=== PATIENT | male | born 1965 | race African-American/Black ===

== ENCOUNTER 2019-04-18 17:14 | Inpatient (IN) ==
[2019-04-18 18:31] LABS: Basophils % 0.5 % (0.0-0.8); Eosinophils # 0.2 10*3/uL (0.0-0.87); Eosinophils % 2.5 % (0.00-10.9); Hemoglobin 13.4 GM/DL (14.0-18.0); Immature Granulocytes % 0.3 %; Immature Granulocytes Absolute 0.02 #; Lymphocytes # 2.7 10*3/uL (1.4-4.0); Lymphocytes % 41.4 % (21.2-54.2); Mean Corpuscular HGB Conc 32.7 GM/DL (32-36); Mean Corpuscular Volume 98.3 FL (87-102); Mean Platelet Volume 10.1 FL (9.6-12.0); Monocytes % 8.8 % (1.7-12.7); Neutrophils % 46.5 % (38.7-73.9); Platelet Count 206 T/CUMM (130-400); Red Blood Count 4.17 MC/CUMM (3.8-5.5); Red Cell Distribution Width 12.1 % (9.3-17.3); White Blood Count 6.4 T/CUMM (4-12)
[2019-04-18 18:42] LABS: PT Patient Result 10.6 SECS (9.6-12.2); Partial Thromboplastin Time 26.8 SECS (20.8-36.0)
[2019-04-18 18:49] LABS: Albumin 3.6 G/DL (3.4-5.0); Bilirubin,Total 0.6 MG/DL (0.2-1.0); Calcium 8.5 MG/DL (8.5-10.1); Osmolality,Calculated 277.1 MOS/KG (273-304); Total Protein 7.5 G/DL (6.4-8.3)
[2019-04-18 18:52] LABS: Troponin I < 0.015 NG/ML (0.00-0.045)
[2019-04-18] MEDS ORDERED: hydrALAZINE 20 MG/1 ML VIAL ONE (19:30)
[2019-04-18] MEDS ORDERED: hydrALAZINE 20 MG/1 ML VIAL IM STA (19:36)
[2019-04-18] MEDS ORDERED: hydrALAZINE 20 MG/1 ML VIAL IV STA (19:37)
[2019-04-18] MEDS ORDERED: ONDANSETRON 4 MG/2 ML VIAL IV PRN (20:34)
[2019-04-18] MEDS ORDERED: diphenhydrAMINE CAP 25 MG CAPSULE PO PRN (20:34)
[2019-04-18] MEDS ORDERED: hydrALAZINE 20 MG/1 ML VIAL IV PRN (20:34)
[2019-04-18] MEDS ORDERED: MORPHINE 4 MG/1 ML VIAL IV PRN (20:34)
[2019-04-18] MEDS ORDERED: guaiFENesin/DM ER 600-30 MG TABLET PO PRN (20:34)
[2019-04-18] MEDS ORDERED: ACETAMINOPHEN 325 MG TABLET PO PRN (20:34)
[2019-04-18] MEDS ORDERED: NICOTINE 21 MG/24 HR PATCH TRANSDERM PRN (20:34)
[2019-04-18] MEDS ORDERED: BISACODYL 5 MG TABLET PO PRN (20:34)
[2019-04-18] MEDS ORDERED: GLUCAGON 1 MG VIAL IM PRN (20:42)
[2019-04-18] MEDS ORDERED: DEXTROSE 10% 250 ML BAG IV PRN (21:04)
[2019-04-18] MEDS ORDERED: ATORVASTATIN 80 MG TABLET PO SCH (22:00)
[2019-04-18] MEDS ORDERED: ATORVASTATIN 40 MG TABLET PO SCH (22:02)
[2019-04-18 22:14] LABS: Risk Ratio 3.81; Thyroid Stimulating Hormone 0.998 uIU/ml (0.358-3.74); VLDL CHOLESTEROL 37.4 MG/DL
[2019-04-18 22:38] LABS: Troponin I < 0.015 NG/ML (0.00-0.045)
[2019-04-19] MEDS: INSULIN REGULAR 100 UNIT/ML SUBCUT SCH ×3 (00:02→18:27)
[2019-04-19] MEDS: ENOXAPARIN 40 MG/0.4 ML SYRINGE SUBCUT SCH ×2 (00:02→00:06)
[2019-04-19 01:04] LABS: Troponin I < 0.015 NG/ML (0.00-0.045)
[2019-04-19] MEDS ORDERED: INFLUENZA VIRUS VACCINE 0.5 ML SYRINGE IM ONE (07:28)
[2019-04-19] MEDS ORDERED: hydroCHLOROthiazide 12.5 MG CAPSULE PO SCH (09:00)
[2019-04-19] MEDS ORDERED: ASPIRIN 325 MG TABLET PO SCH (09:00)
[2019-04-19] MEDS ORDERED: PANTOPRAZOLE 40 MG TABLET PO SCH (09:00)
[2019-04-19] MEDS ORDERED: amLODIPine 10 MG TABLET PO SCH ×2 (09:00)
[2019-04-19] MEDS ORDERED: LOSARTAN 25 MG TABLET PO SCH (09:00)
[2019-04-19 10:08] LABS: Urine Color Yellow (Yellow)
[2019-04-19 10:09] LABS: Apearance,Urine Clear (Clear); Bilirubin,Urine Negative (Negative); Blood, Urine Negative (Negative); Glucose,Urine (UA) Negative (Negative); Ketones,Urine Negative (Negative); Nitrite,Urine Negative (Negative); Protein,Urine Negative; Urine Specific Gravity 1.015 (1.001-1.035)
[2019-04-19 10:35] LABS: Barbiturates Screen,Urine Negative (Negative); Benzodiazepines Screen,Urine Negative (Negative); Cannabinoid Screen,Urine Negative (Negative); Opiate Screen,Urine Negative (Negative); Phencyclidine Screen,Urine Negative (Negative)
[2019-04-19] MEDS: POTASSIUM CHLORIDE 20 MEQ TABLET PO PRN ×2 (11:30→18:39)
[2019-04-19 16:40] VITALS: BP 176/93
== END 2019-04-19 19:05 | disposition home or self-care (01) | DRG 305 ==
LOC: N.ED 17:14 → N.EDINP 21:41 → N.4E 21:50
PROVIDERS: ADMIT Internal Medicine; ATTEND Internal Medicine